=== PATIENT | female | born 1995 | race African-American/Black ===

== ENCOUNTER 2017-11-14 14:55 | Emergency (ER) | payer MEDICAID ==
[~2017-11-14] VITALS: Ht 132.1 cm; Wt 129.5 kg
[2017-11-14] MEDS ORDERED: PENI500T2 PO (17:11)
[2017-11-14] MEDS ORDERED: ONDA4TAB6 PO (17:11)
[2017-11-14] MEDS ORDERED: PRED20TA PO (17:11)
[2017-11-14 17:26] VITALS: BP 149/99
== END 2017-11-14 17:29 | disposition home or self-care (01) ==
LOC: ER 14:56
DX: J03.00 Acute streptococcal tonsillitis, unspecified (principal); Z79.899 Other long term (current) drug therapy
CPT/HCPCS: 87081; 87880; 99284

== ENCOUNTER 2018-01-27 21:28 | Emergency (ER) | payer MEDICAID ==
[~2018-01-27] VITALS: Ht 170.2 cm; Wt 128.9 kg
[~2018-01-27 21:28] MED LIST: ONDA4TAB6 PO
[2018-01-27 21:42] VITALS: BP 112/82
[2018-01-27] MEDS ORDERED: dexamethasone sod phosphate 10mg/ml inj IV STA (22:34)
[2018-01-27] MEDS ORDERED: ondansetron 4mg rapidly disintigrating tab PO ONE (22:35)
[2018-01-27] MEDS ORDERED: PENI500T2 PO (22:36)
== END 2018-01-27 23:07 | disposition home or self-care (01) ==
LOC: ER 21:29
DX: J02.0 Streptococcal pharyngitis (principal)
CPT/HCPCS: 96374; 99284; J1100

== ENCOUNTER 2018-03-08 21:40 | Emergency (ER) | payer MEDICAID ==
[~2018-03-08] VITALS: Ht 170.2 cm; Wt 123.5 kg
[2018-03-08] MEDS ORDERED: dexamethasone sod phosphate 10mg/ml inj IM STA (23:18)
[2018-03-08] MEDS ORDERED: penicillin G benzathine 1.2 million unit/2ml syringe IM ONE (23:20)
[2018-03-08 23:34] VITALS: BP 117/64
== END 2018-03-08 23:49 | disposition home or self-care (01) ==
LOC: ER 21:40
DX: J03.90 Acute tonsillitis, unspecified (principal); Z98.890 Other specified postprocedural states; Z79.899 Other long term (current) drug therapy
CPT/HCPCS: 96372; 99284; J0561; J1100

== ENCOUNTER 2019-06-29 17:30 | Emergency (ER) | payer MEDICARE, MEDICAID ==
[~2019-06-29] VITALS: Ht 170.2 cm; Wt 125.3 kg
[~2019-06-29 17:30] MED LIST changes: +CEPH-571 PO; +IBUP-1986 PO; +LIDO20SO16 PO; +LOPE2CAP PO; +METH4TAB3 PO; +ONDA8TAB6 PO
[2019-06-29] MEDS ORDERED: dexamethasone 0.5 mg/5ml unit-dose oral solution PO STA (17:47)
[2019-06-29] MEDS ORDERED: dexamethasone sod phosphate 10mg/ml inj PO STA (17:49)
[2019-06-29] MEDS ORDERED: acetaminophen 325mg tablet PO ONE (17:50)
[2019-06-29 18:24] VITALS: BP 124/86
== END 2019-06-29 18:40 | disposition home or self-care (01) ==
LOC: ER 17:31
DX: J02.8 Acute pharyngitis due to other specified organisms (principal); B97.89 Other viral agents as the cause of diseases classified elsewhere; Z98.890 Other specified postprocedural states; Z79.2 Long term (current) use of antibiotics; Z79.899 Other long term (current) drug therapy
CPT/HCPCS: 87081; 87880; 99283; J1100; J8540

== ENCOUNTER 2019-11-03 12:30 | Emergency (ER) | payer MEDICARE, MEDICAID ==
[~2019-11-03] VITALS: Ht 170.2 cm; Wt 125.9 kg
[2019-11-03 12:48] VITALS: BP 156/91
[2019-11-03] MEDS ORDERED: acetaminophen/codeine 120mg/12mg per 5ml cup PO ONE (13:55)
[2019-11-03] MEDS ORDERED: amox tr/clav. pot 400mg/5ml 100ml suspension PO STA (14:32)
[2019-11-03] MEDS ORDERED: AMOX-580 PO (14:58)
== END 2019-11-03 15:12 | disposition home or self-care (01) ==
LOC: ER 12:30
DX: G89.18 Other acute postprocedural pain (principal); Z79.2 Long term (current) use of antibiotics; Z79.899 Other long term (current) drug therapy; Z90.89 Acquired absence of other organs
CPT/HCPCS: 99283